=== PATIENT | female | born 1990 | race Caucasian/White ===

== ENCOUNTER → 2017-05-17 | Outpatient (CLI) | payer BC ==
[~2017-05-17] MED LIST: IBUP200T48 PO; OXYC-302 PO
== END | disposition home or self-care (01) ==
LOC: CFH 12:31
PROVIDERS: ATTEND Surgery
DX: E04.2 Nontoxic multinodular goiter (principal)
CPT/HCPCS: 76536

== ENCOUNTER 2017-09-17 10:18 | Emergency (ER) | payer BC ==
[~2017-09-17] VITALS: Ht 157.5 cm; Wt 107.0 kg
[~2017-09-17 10:18] MED LIST changes: +METF500T4 PO
[2017-09-17 12:25] LABS: HEMATOCRIT 39.4 % (34.6-47.8); HEMOGLOBIN 13.4 g/dL (11.7-16.4); WHITE BLOOD COUNT 9.9 x10^3/uL (3.4-10)
[2017-09-17 12:36] LABS: BLOOD UREA NITROGEN 4 mg/dL (7-18)
[2017-09-17 13:42] VITALS: BP 127/73
== END 2017-09-17 13:44 | disposition home or self-care (01) ==
LOC: ED 13:21
DX: O20.0 Threatened abortion (principal); Z3A.12 12 weeks gestation of pregnancy; E11.9 Type 2 diabetes mellitus without complications
CPT/HCPCS: 36415; 76801; 80048; 81003; 82040; 85025; 99285

== ENCOUNTER → 2018-05-23 | Outpatient (CLI) | payer BC ==
[~2018-05-23] MED LIST changes: -IBUP200T48 PO; +IBUP200T49 PO; -METF500T4 PO; +METF500T5 PO
== END | disposition home or self-care (01) ==
LOC: CFH 07:14
PROVIDERS: ATTEND Internal Medicine
DX: E04.2 Nontoxic multinodular goiter (principal); E11.9 Type 2 diabetes mellitus without complications
CPT/HCPCS: 76536

== ENCOUNTER 2019-10-21 23:31 | Emergency (ER) | payer BC ==
[~2019-10-21] VITALS: Ht 157.5 cm; Wt 111.9 kg
[~2019-10-21 23:31] MED LIST changes: +METF500T17 PO; -METF500T5 PO
[2019-10-22 00:28] LABS: BASOPHILS # (AUTO) 0.05 x10^3/uL (0-0.1); BASOPHILS % (AUTO) 1 % (0-1); EOSINOPHILS # (AUTO) 0.14 x10^3/uL (0-0.4); EOSINOPHILS % (AUTO) 1 % (1-7); LYMPHOCYTES # (AUTO) 3.83 x10^3/uL (1-3.4); LYMPHOCYTES % (AUTO) 39 % (22-44); MD NO; MEAN CORPUSCULAR HEMOGLOBIN 28.8 pg (27.0-34.8); MEAN CORPUSCULAR HGB CONC 33.3 g/dL (32.4-35.8); MEAN CORPUSCULAR VOLUME 86.7 fL (80-100); MEAN PLATELET VOLUME 7.5 fL (7.4-10.4); MONOCYTES # (AUTO) 0.55 x10^3/uL (0.2-0.8); MONOCYTES % (AUTO) 6 % (2-9); NEUTROPHILS # (AUTO) 5.17 x10^3/uL (1.8-6.8); NEUTROPHILS % (AUTO) 53 % (42-75); PLATELET COUNT 285 x10^3/uL (130-400); RED BLOOD COUNT 4.62 x10^6/uL (3.82-5.3); RED CELL DISTRIBUTION WIDTH 13.5 % (9.6-15.2)
[2019-10-22 00:41] LABS: ALBUMIN 2.8 g/dL (3.4-5.0); ANION GAP 7 mmol/L (5-15); CALCIUM 9.2 mg/dL (8.5-10.1); CHLORIDE 106 mmol/L (98-107)
[2019-10-22 01:00] LABS: CREATININE 0.62 mg/dL (0.55-1.02)
[2019-10-22 01:35] VITALS: BP 132/84
[2019-10-22 02:01] VITALS: BP 120/73
== END 2019-10-22 02:15 | disposition home or self-care (01) ==
LOC: ED 23:59
DX: O02.1 Missed abortion (principal); E11.9 Type 2 diabetes mellitus without complications; Z3A.11 11 weeks gestation of pregnancy
CPT/HCPCS: 36415; 80048; 82040; 84702; 85025; 86850; 86900; 96372; 99283; J2790

== ENCOUNTER 2019-10-23 09:34 | Emergency (ER) | payer BC ==
[~2019-10-23] VITALS: Ht 157.5 cm; Wt 111.7 kg
--- NOTE | 2019-10-23 10:22 | NUR ---
PT CO OF VAGINAL BLEEDING THAT IS VERY PAINFUL. PT IS 10 WEEKS . BELIEVES SHE MAY HAVE "ALREADY PASSED THE FETUS". SOAKING 1 PAD PER HOUR SINCE 0100. HX OF 7 MISCARRIAGES. SAYS SHE TOOK A PERCOCET AT ABOUT 0800 THIS MORNING WITH LITTLE PAIN RELIEF. IS BEDSIDE. WARM BLANKET PROVIDED.
[2019-10-23] MEDS ORDERED: ONDANSETRON 2MG/ML, 2ML IVPush ONE (10:30)
[2019-10-23] MEDS ORDERED: SODIUM CHLORIDE FLUSH 10ML SYR IVF ONE (10:30)
[2019-10-23] MEDS ORDERED: SODIUM CHLORIDE 0.9% 1,000ML IVBOLUS ONE (10:30)
[2019-10-23] MEDS ORDERED: HYDROmorphone 1 MG/ML, 1ML INJ IVPush PRN (10:30)
[2019-10-23] MEDS ORDERED: HYDROmorphone 1 MG/ML, 1ML INJ ONE (10:33)
[2019-10-23] MEDS ORDERED: ONDANSETRON 2MG/ML, 2ML ONE (10:33)
[2019-10-23 11:37] LABS: BASOPHILS # (AUTO) 0.02 x10^3/uL (0-0.1); BASOPHILS % (AUTO) 0 % (0-1); EOSINOPHILS # (AUTO) 0.11 x10^3/uL (0-0.4); EOSINOPHILS % (AUTO) 1 % (1-7); LYMPHOCYTES # (AUTO) 1.85 x10^3/uL (1-3.4); LYMPHOCYTES % (AUTO) 17 % (22-44); MD NO; MEAN CORPUSCULAR HEMOGLOBIN 28.9 pg (27.0-34.8); MEAN CORPUSCULAR HGB CONC 33.8 g/dL (32.4-35.8); MEAN CORPUSCULAR VOLUME 85.5 fL (80-100); MEAN PLATELET VOLUME 7.8 fL (7.4-10.4); MONOCYTES # (AUTO) 0.38 x10^3/uL (0.2-0.8); MONOCYTES % (AUTO) 3 % (2-9); NEUTROPHILS # (AUTO) 8.84 x10^3/uL (1.8-6.8); NEUTROPHILS % (AUTO) 79 % (42-75); PLATELET COUNT 262 x10^3/uL (130-400); RED BLOOD COUNT 4.42 x10^6/uL (3.82-5.3); RED CELL DISTRIBUTION WIDTH 13.3 % (9.6-15.2)
[2019-10-23 11:51] LABS: ALBUMIN 2.8 g/dL (3.4-5.0); ANION GAP 6 mmol/L (5-15); CALCIUM 8.5 mg/dL (8.5-10.1); CHLORIDE 108 mmol/L (98-107)
[2019-10-23 12:10] LABS: CREATININE 0.63 mg/dL (0.55-1.02)
--- NOTE | 2019-10-23 12:19 | NUR ---
PT REPORTS IMPROVEMENT IN PAIN. AWAITING DOC FOR PELVIC EXAM
--- NOTE | 2019-10-23 12:52 | NUR ---
MD LIEBERMAN CONSULTED WITH MD MULLER FROM OB. PER OB RECCOMENDATION PT IS TO RECEIVE PITOCIN. L&D CONTACTED.
[2019-10-23] MEDS ORDERED: MISOPROSTOL 200 MCG TABLET ONE (12:59)
[2019-10-23] MEDS ORDERED: OXYTOCIN 10 UNITS/ML, 1ML ONE (12:59)
[2019-10-23] MEDS ORDERED: OXYTOCIN 30U/ 0.9% NaCL 500ML 0 ML ONE (12:59)
[2019-10-23] MEDS ORDERED: OXYTOCIN 10 UNITS/ML, 1ML IVPB ONE (13:00)
[2019-10-23] MEDS ORDERED: OXYTOCIN 30U/ 0.9% NaCL 500ML IV PRN (13:00)
[2019-10-23] MEDS ORDERED: MISOPROSTOL 200 MCG TABLET PR ONE (13:30)
--- NOTE | 2019-10-23 14:15 | NUR ---
DR. COLE IN WITH PATIENT
[2019-10-23] MEDS ORDERED: KETOROLAC 30 MG/1 ML ONE (15:18)
[2019-10-23] MEDS ORDERED: KETOROLAC 30 MG/1 ML IVPush ONE (15:30)
--- NOTE | 2019-10-23 16:16 | NUR ---
SPOKE WITH BLOOD BLANK. AWAITING RH SCREENING RESULTS IN ORDER TO GIVE RHOGAM TO PATIENT.
[2019-10-23 17:28] VITALS: BP 121/77
[2019-10-23 17:43] VITALS: BP 123/77
== END 2019-10-23 17:52 | disposition home or self-care (01) ==
LOC: ED 13:07
DX: O03.1 Delayed or excessive hemorrhage following incomplete spontaneous abortion (principal); R42 Dizziness and giddiness
CPT/HCPCS: 36415; 76830; 80048; 82040; 84702; 85025; 86850; 86870; 86900; 88300; 88305; 96361; 96374; 96375; 99284; J1170; J2405; J2790; J7030

== ENCOUNTER 2020-12-29 16:07 | Outpatient (CLI) | payer BC ==
[~2020-12-29] VITALS: Ht 157.5 cm; Wt 111.4 kg
[~2020-12-29 16:07] MED LIST changes: -OXYC-302 PO; +OXYC1TAB14 PO
[2020-12-29 16:18] VITALS: BP 129/80
[2020-12-29 16:38] LABS: BASOPHILS % (AUTO) 1 % (0-1); EOSINOPHILS % (AUTO) 1 % (1-7); LYMPHOCYTES % (AUTO) 31 % (22-44); MEAN CORPUSCULAR HGB CONC 33.5 g/dL (32.4-35.8); MEAN PLATELET VOLUME 8.2 fL (7.4-10.4); MONOCYTES % (AUTO) 7 % (2-9); NEUTROPHILS % (AUTO) 61 % (42-75); PLATELET COUNT 252 x10^3/uL (130-400); RED BLOOD COUNT 4.05 x10^6/uL (3.82-5.3); RED CELL DISTRIBUTION WIDTH 13.9 % (9.6-15.2)
[2020-12-29 16:39] LABS: MD NO
[2020-12-29] MEDS ORDERED: METF10007 PO (16:42)
[2020-12-29] MEDS ORDERED: INSU100I34 SQ-INSULIN (16:43)
[2020-12-29] MEDS ORDERED: ASPI81TA59 PO (16:45)
[2020-12-29] MEDS ORDERED: PREN1TAB60 PO (16:46)
[2020-12-29 16:50] LABS: ALANINE AMINOTRANSFERASE 21 U/L (12-78); ALBUMIN 2.3 g/dL (3.4-5.0); ANION GAP 7 mmol/L (5-15); BILIRUBIN, DIRECT 0.1 mg/dL (0.1-0.2); CALCIUM 9.2 mg/dL (8.5-10.1); CHLORIDE 106 mmol/L (98-107); CREATININE 0.56 mg/dL (0.55-1.02)
[2020-12-29 16:51] LABS: MICROSCOPIC INDICATED
[2020-12-29 16:53] LABS: ALKALINE PHOSPHATASE 78 U/L (45-117); BILIRUBIN,TOTAL 0.4 mg/dL (0.2-1.0); TOTAL PROTEIN 6.6 g/dL (6.4-8.2)
[2020-12-29 17:01] LABS: CREATININE,URINE RANDOM 95.6 mg/dL
== END 2020-12-29 17:28 | disposition home or self-care (01) ==
LOC: LDOP 16:07
PROVIDERS: ATTEND Obstetrics & Gynecology
DX: O16.3 Unspecified maternal hypertension, third trimester (principal); O24.913 Unspecified diabetes mellitus in pregnancy, third trimester; Z3A.35 35 weeks gestation of pregnancy; Z79.4 Long term (current) use of insulin
CPT/HCPCS: 36415; 59025; 80053; 81001; 82248; 82570; 84156; 84550; 85025

== ENCOUNTER 2021-01-05 12:55 | Outpatient (CLI) | payer BC ==
[~2021-01-05] VITALS: Ht 157.5 cm; Wt 110.0 kg
[~2021-01-05 12:55] MED LIST changes: +ASPI81TA59 PO; +INSU100I34 SQ-INSULIN; +METF10007 PO; +PREN1TAB60 PO
[2021-01-05 14:06] LABS: BASOPHILS % (AUTO) 0 % (0-1); EOSINOPHILS % (AUTO) 1 % (1-7); LYMPHOCYTES % (AUTO) 27 % (22-44); MEAN CORPUSCULAR HEMOGLOBIN 28.9 pg (27.0-34.8); MEAN CORPUSCULAR HGB CONC 33.9 g/dL (32.4-35.8); MEAN PLATELET VOLUME 8.5 fL (7.4-10.4); MONOCYTES % (AUTO) 7 % (2-9); NEUTROPHILS % (AUTO) 66 % (42-75); PLATELET COUNT 250 x10^3/uL (130-400); RED BLOOD COUNT 3.83 x10^6/uL (3.82-5.3); RED CELL DISTRIBUTION WIDTH 13.6 % (9.6-15.2)
[2021-01-05 14:09] LABS: MD NO
[2021-01-05 14:15] LABS: ALANINE AMINOTRANSFERASE 20 U/L (12-78); ALBUMIN 2.1 g/dL (3.4-5.0); ANION GAP 4 mmol/L (5-15); CALCIUM 8.5 mg/dL (8.5-10.1); CHLORIDE 111 mmol/L (98-107); CREATININE 0.51 mg/dL (0.55-1.02)
[2021-01-05 14:18] LABS: ALKALINE PHOSPHATASE 72 U/L (45-117); BILIRUBIN,TOTAL 0.5 mg/dL (0.2-1.0)
== END 2021-01-05 14:30 | disposition home or self-care (01) ==
LOC: LDOP 12:55
PROVIDERS: ATTEND Obstetrics & Gynecology
DX: O16.3 Unspecified maternal hypertension, third trimester (principal); Z3A.36 36 weeks gestation of pregnancy
CPT/HCPCS: 36415; 59025; 80053; 82570; 84156; 84550; 85025

== ENCOUNTER 2021-01-06 14:46 | Outpatient (CLI) | payer BC ==
[~2021-01-06] VITALS: Ht 157.5 cm; Wt 111.4 kg
[2021-01-06 15:08] LABS: MICROSCOPIC NOT IND
[2021-01-06 15:13] LABS: BASOPHILS % (AUTO) 1 % (0-1); EOSINOPHILS % (AUTO) 1 % (1-7); LYMPHOCYTES % (AUTO) 27 % (22-44); MEAN CORPUSCULAR HEMOGLOBIN 28.9 pg (27.0-34.8); MEAN CORPUSCULAR HGB CONC 34.2 g/dL (32.4-35.8); MEAN PLATELET VOLUME 8.1 fL (7.4-10.4); MONOCYTES % (AUTO) 7 % (2-9); NEUTROPHILS % (AUTO) 65 % (42-75); PLATELET COUNT 265 x10^3/uL (130-400); RED BLOOD COUNT 3.86 x10^6/uL (3.82-5.3); RED CELL DISTRIBUTION WIDTH 13.6 % (9.6-15.2)
[2021-01-06 15:15] LABS: MD NO
[2021-01-06 15:21] LABS: CREATININE,URINE RANDOM 73.1 mg/dL
[2021-01-06 15:24] LABS: ALANINE AMINOTRANSFERASE 18 U/L (12-78); ALBUMIN 2.2 g/dL (3.4-5.0); ANION GAP 6 mmol/L (5-15); CHLORIDE 110 mmol/L (98-107)
[2021-01-06 15:27] LABS: ALKALINE PHOSPHATASE 74 U/L (45-117); BILIRUBIN,TOTAL 0.3 mg/dL (0.2-1.0); CREATININE 0.69 mg/dL (0.55-1.02); TOTAL PROTEIN 6.3 g/dL (6.4-8.2)
[2021-01-06 15:28] LABS: BILIRUBIN, DIRECT < 0.1 mg/dL (0.1-0.2)
== END 2021-01-06 17:00 | disposition home or self-care (01) ==
LOC: LDOP 14:46
PROVIDERS: ATTEND Obstetrics & Gynecology
DX: O13.3 Gestational [pregnancy-induced] hypertension without significant proteinuria, third trimester (principal); O24.419 Gestational diabetes mellitus in pregnancy, unspecified control; E28.2 Polycystic ovarian syndrome; Z3A.36 36 weeks gestation of pregnancy
CPT/HCPCS: 36415; 59025; 80053; 81003; 82248; 82570; 84156; 84550; 85025

== ENCOUNTER 2021-01-09 08:21 | Inpatient (IN) | payer BC ==
[~2021-01-09] VITALS: Ht 157.5 cm; Wt 111.5 kg
[2021-01-09] MEDS ORDERED: FENTANYL PF 100 MCG/2ML IV PRN (10:00)
[2021-01-09] MEDS ORDERED: ONDANSETRON 2MG/ML, 2ML IVPush PRN (10:00)
[2021-01-09] MEDS ORDERED: FENTANYL PF 100 MCG/2ML IVPush PRN (10:00)
[2021-01-09] MEDS ORDERED: TERBUTALINE 1 MG/ML, 1ML SQ PRN (10:00)
[2021-01-09] MEDS ORDERED: TERBUTALINE 1 MG/ML, 1ML IVPush PRN (10:00)
[2021-01-09] MEDS ORDERED: OXYTOCIN 30U/ 0.9% NaCL 500ML 500 ML IV ONE (10:00)
[2021-01-09 10:37] LABS: BASOPHILS % (AUTO) 1 % (0-1); EOSINOPHILS % (AUTO) 1 % (1-7); LYMPHOCYTES % (AUTO) 20 % (22-44); MD NO; MEAN CORPUSCULAR HEMOGLOBIN 28.8 pg (27.0-34.8); MEAN PLATELET VOLUME 8.2 fL (7.4-10.4); MONOCYTES % (AUTO) 6 % (2-9); NEUTROPHILS % (AUTO) 73 % (42-75); PLATELET COUNT 251 x10^3/uL (130-400); RED BLOOD COUNT 3.87 x10^6/uL (3.82-5.3); RED CELL DISTRIBUTION WIDTH 13.5 % (9.6-15.2)
[2021-01-09] MEDS: LACTATED RINGERS 1,000 ML IV SCH ×2 (10:45→18:37)
[2021-01-09 10:48] LABS: ALANINE AMINOTRANSFERASE 17 U/L (12-78); ALBUMIN 2.2 g/dL (3.4-5.0); ANION GAP 6 mmol/L (5-15); BILIRUBIN, DIRECT < 0.1 mg/dL (0.1-0.2); CALCIUM 8.6 mg/dL (8.5-10.1); CHLORIDE 108 mmol/L (98-107)
[2021-01-09 10:50] LABS: ALKALINE PHOSPHATASE 73 U/L (45-117); BILIRUBIN,TOTAL 0.4 mg/dL (0.2-1.0); TOTAL PROTEIN 6.2 g/dL (6.4-8.2)
[2021-01-09] MEDS ORDERED: NEWBORN KIT ONE (10:52)
[2021-01-09] MEDS ORDERED: metFORMIN 500 MG TABLET PO ONE (11:00)
[2021-01-09 11:11] VITALS: BP 121/78
[2021-01-09] MEDS ORDERED: FENTANYL/BUPIV./NS/PF 250 ML EPIDCONT SCH ×2 (12:30)
[2021-01-09] MEDS ORDERED: LACTATED RINGERS 1,000 ML IVBOLUS PRN ×2 (12:30)
[2021-01-09] MEDS ORDERED: EPHEDRINE 50 MG/ML, 1ML IVPush PRN ×2 (12:30)
[2021-01-09] MEDS ORDERED: NALOXONE 0.4 MG/ML, 1ML IVPush PRN ×2 (12:30)
[2021-01-09] MEDS ORDERED: LACTATED RINGERS 1,000 ML IV SCH ×2 (12:30)
[2021-01-09] MEDS ORDERED: OXYTOCIN 30U/ 0.9% NaCL 500ML 500 ML IV PRN (13:00)
[2021-01-09 16:54] LABS: MICROSCOPIC INDICATED
[2021-01-09] MEDS: metFORMIN 500 MG TABLET PO SCH (17:00)
[2021-01-09] MEDS ORDERED: BUPIVACAINE 0.25% ONE (17:11)
[2021-01-09] MEDS ORDERED: LIDOCAINE/PF 1.5% EPI 1:200K, 10 ML ONE (17:11)
[2021-01-09] MEDS ORDERED: LIDOCAINE 1%, 20ML ONE (20:44)
[2021-01-09] MEDS ORDERED: MISOPROSTOL 200 MCG TABLET ONE (20:45)
[2021-01-09] MEDS ORDERED: CEFAZOLIN 2,000 MG in SODIUM CHLORIDE 0.9% 50 ML IV STA (22:24)
[2021-01-09] MEDS ORDERED: IBUPROFEN 600 MG TABLET ONE (22:26)
[2021-01-09] MEDS: IBUPROFEN 600 MG TABLET PO PRN (22:27)
[2021-01-09] MEDS ORDERED: MISOPROSTOL 200 MCG TABLET PR PRN (22:30)
[2021-01-09] MEDS ORDERED: RHOGAM FROM BLOOD BANK 1 NOTE EA IM/IV ONE (22:30)
[2021-01-09] MEDS ORDERED: OXYcodone/APAP 5/325MG TABLET PO PRN ×2 (22:30)
[2021-01-09] MEDS ORDERED: ACETAMINOPHEN 325 MG TABLET PO PRN ×2 (22:30)
[2021-01-09] MEDS ORDERED: METHYLERGONOVINE 0.2 MG/ML IM PRN (22:30)
[2021-01-09] MEDS ORDERED: DIPH,PERTUSS(ACELL),TET VAC/PF NC IM-VACC PRN (22:30)
[2021-01-09] MEDS ORDERED: SIMETHICONE 80 MG CHEW TAB PO PRN (22:30)
[2021-01-09] MEDS ORDERED: CEFAZOLIN PMX 2GM/50ML 50 ML IVPB STA (22:41)
[2021-01-10 00:40] VITALS: BP 122/78
[2021-01-10] MEDS: OXYTOCIN 30U/ 0.9% NaCL 500ML 500 ML IV SCH ×3 (01:06→18:15)
[2021-01-10 04:00] VITALS: BP 118/74
[2021-01-10 06:32] LABS: BASOPHILS % (AUTO) 0 % (0-1); EOSINOPHILS % (AUTO) 0 % (1-7); LYMPHOCYTES % (AUTO) 19 % (22-44); MEAN CORPUSCULAR HEMOGLOBIN 28.6 pg (27.0-34.8); MEAN CORPUSCULAR HGB CONC 33.7 g/dL (32.4-35.8); MEAN PLATELET VOLUME 8.3 fL (7.4-10.4); MONOCYTES % (AUTO) 6 % (2-9); NEUTROPHILS % (AUTO) 75 % (42-75); PLATELET COUNT 220 x10^3/uL (130-400); RED BLOOD COUNT 3.59 x10^6/uL (3.82-5.3); RED CELL DISTRIBUTION WIDTH 13.5 % (9.6-15.2)
[2021-01-10 06:49] LABS: MD NO
[2021-01-10] MEDS: PRENATAL VIT/IRON/FA 1 EACH TABLET PO SCH (08:27)
[2021-01-10] MEDS: DOCUSATE 100 MG CAPSULE PO PRN ×2 (08:27→23:22)
[2021-01-10] MEDS: IBUPROFEN 600 MG TABLET PO PRN ×3 (08:27→23:22)
[2021-01-10] MEDS: metFORMIN 500 MG TABLET PO SCH ×2 (08:28→16:50)
[2021-01-10 09:43] VITALS: BP 120/83
[2021-01-10 12:00] VITALS: BP 127/85
[2021-01-10 16:34] VITALS: BP 127/85
[2021-01-10 20:00] VITALS: BP 128/87
[2021-01-11] MEDS: OXYTOCIN 30U/ 0.9% NaCL 500ML 500 ML IV SCH (04:30)
[2021-01-11 07:50] VITALS: BP 126/81
[2021-01-11] MEDS: PRENATAL VIT/IRON/FA 1 EACH TABLET PO SCH (07:52)
[2021-01-11] MEDS: metFORMIN 500 MG TABLET PO SCH (07:53)
[2021-01-11] MEDS: DOCUSATE 100 MG CAPSULE PO PRN (07:53)
[2021-01-11] MEDS: IBUPROFEN 600 MG TABLET PO PRN (07:53)
== END 2021-01-11 12:25 | disposition home or self-care (01) | DRG 807 ==
LOC: LDOP 08:21 → LDIP 09:55 → 2NW 01-10 00:20
PROVIDERS: ADMIT Obstetrics & Gynecology; ATTEND Obstetrics & Gynecology
PROC: 10E0XZZ Delivery of Products of Conception, External Approach (ICD-10-PCS; principal; 2021-01-09)
PROC: 3E0234Z Introduction of Serum, Toxoid and Vaccine into Muscle, Percutaneous Approach (ICD-10-PCS; 2021-01-10)
DX: O13.4 Gestational [pregnancy-induced] hypertension without significant proteinuria, complicating childbirth (principal); Z37.0 Single live birth; O72.0 Third-stage hemorrhage; Z3A.38 38 weeks gestation of pregnancy; Z79.4 Long term (current) use of insulin; O24.424 Gestational diabetes mellitus in childbirth, insulin controlled; Z23 Encounter for immunization; O26.893 Other specified pregnancy related conditions, third trimester; Z67.91 Unspecified blood type, Rh negative; Z20.822 Contact with and (suspected) exposure to COVID-19
CPT/HCPCS: 36415; 80053; 81001; 82248; 82570; 82962; 84112; 84156; 84550; 85025; 85461; 86592; 86850; 86900; 87340; 87635; 87806; 90715; G0378; J0690; J2405; J2790; G0475; J2590; J7120